=== PATIENT | male | born 1955 | race Caucasian/White ===

== ENCOUNTER 2023-01-13 07:52 | Emergency (ER) | payer OTHER, SELFPAY ==
[2023-01-13] VITALS (8 sets, daily range): BP systolic 134–156; BP diastolic 69–83; PULSE 67–81; RESP 12–18; TEMP 36.4; O2SAT 95–99; BMI 34.9
[2023-01-13] MEDS: Morphine 4 MG/ML Syringe IV (08:43)
--- NOTE | 2023-01-13 09:00 | RAD_ITS ---
STUDY: X-RAY - RIGHT SHOULDER REASON FOR EXAM: Male, 67 years old. Injury/Pain TECHNIQUE: 2 view(s) of the shoulder. COMPARISON: None. FINDINGS: There is evidence of anterior inferior dislocation of the right shoulder. There is degenerative arthrosis of the acromioclavicular joint without inferior osseous spur formation. Normal acromion. Normal humeral head and visualized proximal humerus. The soft tissue structures are unremarkable. Normal visualized pulmonary apex. RAD/Shoulder min 2 Views IMPRESSION: Anterior inferior dislocation of the right shoulder. Electronically Signed: Kushal Simon MD at 9:28 EDT ,
--- NOTE | 2023-01-13 09:40 | EX.ED.UPPERE ---
HPI History of Present Illness HPI Narrative: Patient presents with injury to his right shoulder and upper arm that began today. Patient states he fell and landed on his right shoulder this morning. Patient denies any head injury or loss of consciousness. Patient describes his pain as aching. Patient states his pain is worse with movement. Patient admits to some tingling into his fingers. Patient denies any weakness. Patient denies any neck pain or back pain. Patient denies any other injuries. Chief Complaint: Upper Extremity Injury Informant: patient Occured/Mechanism Mechanism/Context: Yes fall Onset/Context/Timing Onset: Today Context: Sudden Onset Timing: Continuous Quality of Pain: Aching Location: Right shoulder and upper arm Worsened by: Movement Relieved by: Nothing Associated Symptoms Associated Symptoms: Positive for Parasthesia; Negative for Weakness or Loss of Funtion PFSH PFSH Medical History no medical history no medical history Home Medications hydrocodone-acetaminophen 5-325mg 5mg-325mg 1 tab PO Q6H PRN PRN Pain 3 days #10 TABLETS 01/13/23 [Rx Last Taken Unknown] Allergy/AdvReac Type Severity Reaction Status Date / Time No Known Allergies Allergy Verified 01/13/23 07:54 Surgical History (Updated 01/13/23 @ 09:[address] Alphonse Newsome DO) Hx of hand surgery Social History Smoking Status: Unknown if ever smoked ROS ROS ED Constitutional Constitutional ED: Denies chills or fever(s) Eyes Eyes: Denies blurry vision or change in vision ENT ENT ED: Denies rhinorrhea or sore throat Cardiovascular Cardiovascular: Denies chest pain or palpitations Respiratory/Chest Respiratory/Chest: Denies cough or dyspnea Gastrointestinal Gastrointestinal: Denies nausea or vomiting Genitourinary Genitourinary ED: Denies dysuria or hematuria Musculoskeletal Musculoskeletal: Denies back pain or neck pain Integumentary Denies abscess or rash Neurologic Neurologic: Denies headache(s) or weakness Allergic/Immunologic Allergic/Immunologic ED: Denies mouth swelling or urticaria EXAM Physical Exam Const Vital Signs: 01/13/23 07:53 01/13/23 09:29 Temperature 97.6 F L Temperature Source Temporal Pulse Rate 81 70 Respiratory Rate 14 16 Blood Pressure 156/78 H Blood Pressure Mean 104 Pulse Ox 97 97 Oxygen Delivery Method Room Air Room Air Positive well nourished and well developed General Appearance ED: well developed and NAD HEENT Reports moist mucous membranes Neck full ROM and supple Chest Wall inspection of chest normal and palpation of chest normal Resp normal respiratory effort and clear to auscultation bilaterally Cardio regular rate and regular rhythm GI non-tender Palpation: soft Extremity Extremity Narrative: There is tenderness and deformity to the right shoulder. There is a sulcus sign noted. There is no ecchymosis noted. There is no bony crepitance or step-off noted. Range of motion was limited in all motions of the right shoulder secondary to pain. Radial pulses are equal bilaterally. Sensation was intact to light touch in the radial, median, ulnar, and axillary areas. Strength is 5/5 in the radial, median, and ulnar areas. Neuro oriented x3, CN's II-XII intact bilaterally, moves all extremities, no focal motor deficits and no sensory deficits noted Sensorium / Orientation: alert Motor Exam: strength 5/5 throughout Psych mental status grossly normal MDM MDM MDM Narrative Medical decision making narrative: Differential diagnosis includes dislocation, fracture, contusion, and sprain. X-rays of the right shoulder will be obtained to assess for fracture and dislocation. Radiography Diagnostic Testing: Clinical Impression(s) from Imaging Studies Shoulder X-Ray 01/13/23 09:00 IMPRESSION: Anterior inferior dislocation of the right shoulder. Electronically Signed: Kushal Simon MD at 9:28 EDT , X-rays of the right shoulder were obtained. There are 2 views. On my independent interpretation, there is an anterior dislocation of the glenohumeral joint. There is no fracture noted. Radiologist also interpreted the x-rays and agrees. Repeat x-rays of the right shoulder were obtained after reduction. There are 3 views. On my independent interpretation, the dislocation was reduced. There is no acute fracture noted. Radiologist also interpreted the x-ray and agrees. Treatment and Re-Evaluation Narrative: Patient was given a dose of morphine initially. Patient was advised of his findings. Patient was advised of the need for procedural sedation for reduction. The procedure was explained to the patient. He had no further questions. Patient was placed on continuous cardiac and pulse external monitors. Patient was given injection of 70 mg of propofol. The shoulder was reduced using traction countertraction technique. Patient tolerated the procedure well. Patient was placed in a sling and swath. Neurovascular exam was intact before and after the procedure. Repeat x-rays of the right shoulder were obtained. There are 3 views. On my independent interpretation, there is adequate reduction of the dislocation. Radiologist also interpreted the x-rays and agrees. Patient was given a prescription for a short course of Anthony. Patient was given a referral for orthopedics. Patient was instructed to follow-up with his primary care physician and orthopedics in 5 to 7 days. Patient understood and was agreeable with the plan. All questions were answered. Procedures Procedural Sedation 1 (Initial Baseline): Consent Signed: Yes Any Problems With Anesthesia: No You/Your family experience fever (hyperthermia) w/anesthesia: No Sedation medication: Propofol Dose: 70 Maliampati Score: Class II ASA Classification: I Discharge Plan Triage Chief Complaint: Upper Extremity Injury ED Provider: Alphonse Newsome Dx/Rx/DC Orders Clinical Impression: Anterior dislocation of right shoulder, Fall Instructions: ED Dislocation: Shoulder (Reduced) Prescriptions: New hydrocodone-acetaminophen [hydrocodone-acetaminophen] 5-325 mg tablet 1 tab PO Q6H PRN PRN (Reason: Pain) 3 Days Qty: 10 0RF Primary Care Provider: Kyrie Keller Referrals: Kyrie Keller DO [Primary Care Provider] - 5-7 Days Alfred Winston DO [Med Staff - Active Staff] - 5-7 Days Disposition Disposition: Home, Self Care Discharge Date/Time: 01/13/23 10:45
[2023-01-13] MEDS: Propofol 200 MG/20 ML Vial IV BOLUS (10:05)
--- NOTE | 2023-01-13 10:20 | RAD_ITS ---
STUDY: X-RAY - RIGHT SHOULDER REASON FOR EXAM: Male, 67 years old. Post reduction examination. TECHNIQUE: 3 view(s) of the shoulder. COMPARISON: Comparison is made with prior study done earlier today. FINDINGS: There is satisfactory reduction of the anterior shoulder dislocation. RAD/Shoulder min 2 Views IMPRESSION: Satisfactory reduction. Electronically Signed: Kushal Simon MD at 10:29 EDT ,
== END 2023-01-13 10:45 | disposition home or self-care (01) ==
PROVIDERS: Emergency Provider Emergency Medicine; PCP Family Medicine; Visit Provider Emergency Medicine
DX: S43.014A Anterior dislocation of right humerus, initial encounter (principal); W19.XXXA Unspecified fall, initial encounter
CPT/HCPCS: 23650; 73030; 96374; 99285; J7030; A4216